=== PATIENT | male | born 1970 | race Caucasian/White ===

== ENCOUNTER 2016-05-03 17:43 | Emergency (ER) | payer OTHER ==
[~2016-05-03] VITALS: Ht 182.9 cm; Wt 113.4 kg
[2016-05-03 18:20] LABS: HEMATOCRIT 45.2 % (38.0-50.0); MCH 31.3 PG (29.0-34.0); MCHC 34.7 G/DL (30.0-36.0); MEAN PLAT.VOLUME 10.4 uM^3 (9.0-12.4); PLATELET COUNT 240 K/uL (156-360); RBC DIS.WIDTH-CV 11.8 % (11.8-14.6); RBC DIS.WIDTH-SD 38.5 % (39-53); RED BLOOD COUNT 5.02 M/uL (4.00-5.50); WHITE BLOOD COUNT 5.7 K/uL (4.1-10.2)
[2016-05-03 18:31] LABS: CHLORIDE 103 mEq/L (99-109); POTASSIUM 4.2 mEq/L (3.7-5.4); SODIUM 138 mEq/L (136-147)
[2016-05-03 18:32] LABS: GLUCOSE 100 mg/dL (70-99)
[2016-05-03 18:34] LABS: ANION GAP 7 MEQ/L (2-14)
[2016-05-03 18:36] LABS: GFR ESTIMATE (CALCULATED) > 59 mL/min/
[2016-05-03 18:37] LABS: UREA NITROGEN (BUN) 6 mg/dL (9-23)
[2016-05-03] MEDS ORDERED: LISINOPRIL30 MG PO (19:47)
[2016-05-03] MEDS ORDERED: ATENOLOL50 MG PO (19:48)
[2016-05-03] MEDS ORDERED: CLONAZEPAM0.5 MG PO (19:48)
[2016-05-03] MEDS ORDERED: PREDNISONE10 MG PO (21:13)
[2016-05-03 21:22] VITALS: BP 129/74
== END 2016-05-03 21:23 | disposition home or self-care (01) ==
LOC: EME 17:43
DX: G50.0 Trigeminal neuralgia (principal); E78.5 Hyperlipidemia, unspecified; I10 Essential (primary) hypertension
CPT/HCPCS: 70450; 71020; 80048; 85027; 93005; J7512